=== PATIENT | male | born 1970 | race Caucasian/White ===

== ENCOUNTER 2016-11-13 00:36 | Emergency (ER) | payer MEDICAID ==
[~2016-11-13] VITALS: Ht 185.4 cm; Wt 90.7 kg
[2016-11-13 00:36] VITALS: BP 159/109; PULSE 75; RESP 18; TEMP 97.4; O2SAT 99
--- NOTE | 2016-11-13 00:36 | NUR ---
Patient to ER bed 8 to gown for evaluation. Side rails up. Report given to CHERRY ARECHIGA.
--- NOTE | 2016-11-13 00:51 | NUR ---
ER at bedside examining patient.
--- NOTE | 2016-11-13 00:55 | NUR ---
Pt alert and oriented. Pt complaining of lower back pain that radiates down to right leg for past 5 days. Pt denies any injury that has occured. Pain became worse today, 7/10 pain reported. Pt denies nausea, vomiting or fever. Pt denies taking any pain medications prior to ER visit. No SOB or other acute distress noted.
[2016-11-13] MEDS ORDERED: KETOROLAC TROMETHAMINE 60 MG/2 ML VIAL IM ONE (01:15)
--- NOTE | 2016-11-13 01:16 | NUR ---
Pt went to Radiology for chest xray ambulating.
[2016-11-13 01:47] VITALS: BP 147/88; PULSE 70; RESP 20; TEMP 98.3; O2SAT 100
--- NOTE | 2016-11-13 01:47 | NUR ---
Patient given written and verbal discharge instructions and verbalizes understanding. ER MD discussed with patient the treatment provided. Patient in stable condition upon discharge. ID arm band removed. Rx of Naprosyn given. Patient educated on pain management and to follow up with PMD. Pain Scale 0/10. Opportunity for questions provided and answered.
== END 2016-11-13 01:47 | disposition home or self-care (01) ==
LOC: SED 00:36
DX: S33.9XXA Sprain of unspecified parts of lumbar spine and pelvis, initial encounter (principal); X50.9XXA Other and unspecified overexertion or strenuous movements or postures, initial encounter; Y93.89 Activity, other specified; Y92.89 Other specified places as the place of occurrence of the external cause; Y99.8 Other external cause status
CPT/HCPCS: 72100; 96372; 99284; J1885